=== PATIENT | female | born 1970 | race Caucasian/White ===

== ENCOUNTER 2024-04-28 11:25 | Day surgery (SDC) | payer BC ==
[2024-04-27 09:45] VITALS: BMI 22.6
[2024-04-28] MEDS ORDERED: Lidocaine 2% PF 5 ML VIAL ONE (11:26)
[2024-04-28] MEDS ORDERED: Ondansetron PF 4 MG/2 ML Vial ONE (11:26)
[2024-04-28] MEDS ORDERED: PROPOFOL 20 ML ONE (11:26)
[2024-04-28] MEDS ORDERED: Midazolam HCl 2 mg/2 ml Vial ONE ×2 (11:26→12:10)
[2024-04-28] MEDS ORDERED: fentaNYL 50 mcg/mL 1 mL Vial ONE ×3 (11:26→14:32)
[2024-04-28] MEDS ORDERED: Dexamethasone 4 mg/ml Vial ONE (11:26)
[2024-04-28] MEDS ORDERED: Bupivacaine PF 0.5% 30 ML VIAL ONE (11:58)
[2024-04-28] MEDS ORDERED: CEFAZOLIN 2 GM VIAL ONE (11:58)
[2024-04-28] MEDS ORDERED: PHENYLEPHRINE-NS 100 MCG/ML 10 ML SYRINGE ONE (12:50)
[2024-04-28] MEDS ORDERED: ePHEDrine Sulfate 50 MG/10 ML VIAL ONE (13:05)
[2024-04-28] MEDS ORDERED: Ondansetron ODT 4 MG TAB ONE (14:59)
[2024-04-28] MEDS ORDERED: HYDROcodone/Acetaminophen 5/325 mg Tablet ONE (14:59)
== END 2024-04-28 15:35 | disposition home or self-care (01) ==
LOC: CSHSDC 11:25
PROVIDERS: ATTEND Podiatrist Foot & Ankle Surgery
PROC: 0SGL0JZ Fusion of Left Tarsometatarsal Joint with Synthetic Substitute, Open Approach (ICD-10-PCS; principal; 2024-04-28)
DX: M21.612 Bunion of left foot (principal); N39.0 Urinary tract infection, site not specified; G62.9 Polyneuropathy, unspecified; Z88.8 Allergy status to other drugs, medicaments and biological substances; Z79.899 Other long term (current) drug therapy
CPT/HCPCS: C1713; C1769; C1776; J0665; J1100; J2250; J2405; J2704; J3010; Q0162